=== PATIENT | female | born 1955 | race Caucasian/White ===

== ENCOUNTER → 2021-11-06 | Outpatient (CLI) | payer MEDICARE, OTHER ==
[2021-11-06 13:00] LABS: HEMOGLOBIN 15.5 gm/dl (12.3-15.3); RED BLOOD COUNT 4.98 M/UL (4.00-5.10)
[2021-11-06 13:44] LABS: BUN/CREATININE RATIO 26 (0-10)
== END ==
LOC: LAB 11:37
PROVIDERS: Internal Medicine
DX: R10.9 Unspecified abdominal pain (principal)
CPT/HCPCS: 36415; 80053; 85025; 86140

== ENCOUNTER → 2021-12-10 | Outpatient (CLI) | payer MEDICARE, OTHER | LOC: KOH-I 12-02 11:00 | DX: R10.13 Epigastric pain (principal); Z90.49 Acquired absence of other specified parts of digestive tract; N27.0 Small kidney, unilateral | CPT/HCPCS: 76700 ==

== ENCOUNTER 2022-05-02 21:16 | Inpatient (IN) | payer MEDICARE, OTHER ==
[~2022-05-02] VITALS: Ht 162.6 cm; Wt 59.9 kg
[2022-05-03 00:28] LABS: HEMOGLOBIN 16.5 gm/dl (12.3-15.3); RED BLOOD COUNT 5.28 M/UL (4.00-5.10); WHITE BLOOD COUNT 9.4 K/UL (4.5-11.0)
[2022-05-03] MEDS ORDERED: ASPIRIN EC81 MG PO (09:37)
[2022-05-03] MEDS ORDERED: LEVOTHYROXINE50 MCG PO (09:37)
[2022-05-03] MEDS ORDERED: PROTONIX 40 MG40 M1 PO (09:38)
[2022-05-03] MEDS ORDERED: ZOLOFT25 MG PO (09:38)
[2022-05-03] MEDS ORDERED: XYZAL5 MG PO (09:38)
[2022-05-03] MEDS ORDERED: HYDROXYZINE HCL25 MG PO (09:39)
[2022-05-03] MEDS ORDERED: IBU800 MG PO (09:39)
[2022-05-03] MEDS ORDERED: KLONOPIN0.5 MG PO (09:41)
[2022-05-04 08:08] LABS: HEMOGLOBIN 12.8 gm/dl (12.3-15.3); RED BLOOD COUNT 4.19 M/UL (4.00-5.10); WHITE BLOOD COUNT 4.8 K/UL (4.5-11.0)
[2022-05-04 08:31] LABS: BUN/CREATININE RATIO 24 (0-10)
--- NOTE | 2022-05-04 17:08 | NUR ---
rEPORT CALLED TO SHU QUIÑONES RN AT [facility], transportation has been arranged.
[2022-05-05 07:52] LABS: HEMOGLOBIN 12.4 gm/dl (12.3-15.3); RED BLOOD COUNT 4.05 M/UL (4.00-5.10)
[2022-05-05 07:57] LABS: WHITE BLOOD COUNT 6.1 K/UL (4.5-11.0)
[2022-05-05 08:24] LABS: BUN/CREATININE RATIO 19 (0-10)
--- NOTE | 2022-05-05 15:22 | NUR ---
0845: PATIENT C/O IV HURTING WITH FLUSH; NO BLOOD RETURN NOTED. DUE TO MULTIPLE IV STICKS, RN NOTIFIED [facility] FOR U/S GUIDED IV. 1330: [facility] ATTEMPTS TO SET UP FOR IV STICK, PATIENT REFUSES, STATING THAT PATIENT STATES THERE IS NOTHING WRONG WITH HER IV AND DOES NOT NEED NEW IV. IV FLUSH EASILY AND NO C/O PAIN WITH FLUSH. RN PROCEEDED WITH IV MEDICATIONS. 1348: PATIENT REQUEST PAIN MEDICATION, OFFERED PERCOCET FIRST PER SPECIFICLY WRITTEN ORDER, PATIENT REFUSED, DEMANDING IV PAIN MEDICATION. MORPHINE 0.5 MG GIVEN PER JAN. 1500: [employer], CALLED IN TO SPEAK WITH PATIENT. RN UPDATED HEALTHCARE MANAGEMENT CONSULTANT WITH REASON FOR CHOICE OF IV MEDICATION.
[2022-05-06 06:48] LABS: BUN/CREATININE RATIO 18 (0-10)
[2022-05-07 06:35] LABS: WHITE BLOOD COUNT 5.5 K/UL (4.5-11.0)
[2022-05-07 06:38] LABS: RED BLOOD COUNT 4.54 M/UL (4.00-5.10)
[2022-05-08] MEDS ORDERED: VITAMIN D325 MCG PO (12:07)
[2022-05-08] MEDS ORDERED: PERCOCET 5/325 T1 EA PO (12:07)
== END 2022-05-08 15:30 | disposition home or self-care (01) | DRG 513 ==
LOC: ER1 21:16 → MED SURG 4 05-03 01:47 → CDU 05-03 01:47 → MED SURG 4 05-03 13:20
PROVIDERS: Internal Medicine; Nurse Practitioner Family; Orthopaedic Surgery; Physician Assistant; ADMIT Internal Medicine
PROC: 0LB70ZZ Excision of Right Hand Tendon, Open Approach (ICD-10-PCS; principal; 2022-05-04 17:00)
PROC: 0XQJ0ZZ Repair Right Hand, Open Approach (ICD-10-PCS; 2022-05-08)
DX: M00.831 Arthritis due to other bacteria, right wrist (principal); L02.511 Cutaneous abscess of right hand; L03.113 Cellulitis of right upper limb; M65.841 Other synovitis and tenosynovitis, right hand; R00.0 Tachycardia, unspecified; I25.10 Atherosclerotic heart disease of native coronary artery without angina pectoris; E03.9 Hypothyroidism, unspecified; N30.10 Interstitial cystitis (chronic) without hematuria; E55.9 Vitamin D deficiency, unspecified; F32.A Depression, unspecified; F41.9 Anxiety disorder, unspecified; Z90.710 Acquired absence of both cervix and uterus; Z90.49 Acquired absence of other specified parts of digestive tract; Z83.3 Family history of diabetes mellitus; Z95.5 Presence of coronary angioplasty implant and graft
CPT/HCPCS: 36415; 73100; 73201; 73218; 76000; 80048; 80053; 80202; 82550; 82553; 83605; 83735; 84100; 84439; 84443; 84484; 85025; 85027; 85652; 86140; 87040; 87070; 87077; 87205; 93005; 96365; 96366; 96367; 96375; 96376; 99285; C1751; J0690; J1100; J1170; J1335; J1650; J1885; J2001; J2250; J2270; J2400; J2405; J2543; J2704; J2795; J3010; J3370; J7030; J7070; Q9967

== ENCOUNTER → 2022-05-10 | Outpatient (CLI) | payer MEDICARE, OTHER ==
[~2022-05-10] MED LIST: ASPIRIN EC81 MG PO; HYDROXYZINE HCL25 MG PO; IBU800 MG PO; KLONOPIN0.5 MG PO; LEVOTHYROXINE50 MCG PO; PERCOCET 5/325 T1 EA PO; PROTONIX 40 MG40 M1 PO; VITAMIN D325 MCG PO; XYZAL5 MG PO; ZOLOFT25 MG PO
== END ==
LOC: OPSV 08:00 → EROP 09:06
DX: Z53.9 Procedure and treatment not carried out, unspecified reason (principal)
CPT/HCPCS: 96365; J1335

== ENCOUNTER → 2022-05-11 | Outpatient (CLI) | payer MEDICARE, OTHER ==
[~2022-05-11] VITALS: Ht 162.6 cm; Wt 60.3 kg
== END ==
LOC: OPSV 15:00
DX: Z53.9 Procedure and treatment not carried out, unspecified reason (principal)
CPT/HCPCS: 96365; J1335

== ENCOUNTER → 2022-06-01 | Outpatient (CLI) | payer MEDICARE, OTHER | LOC: WCC 07:44 | DX: S61.451D Open bite of right hand, subsequent encounter (principal); I25.10 Atherosclerotic heart disease of native coronary artery without angina pectoris; M65.849 Other synovitis and tenosynovitis, unspecified hand; R00.0 Tachycardia, unspecified; W54.0XXD Bitten by dog, subsequent encounter | CPT/HCPCS: G0463 ==